=== PATIENT | female | born 1960 | race Caucasian/White ===

== ENCOUNTER → 2016-05-04 | Outpatient (CLI) | payer OTHER ==
--- NOTE | 2016-05-04 12:57 | Diagnostic Imaging Report ---
PROCEDURE: CT sinuses without contrast TECHNIQUE: Multiple contiguous axial images were obtained through the sinuses without the use of intravenous contrast. Coronal and sagittal reformations were then performed. INDICATION: Chronic sinusitis. COMPARISON: None. FINDINGS: Small focal area of mucosal thickening in the lateral left sphenoid sinus. No other mucosal thickening. No osteitis. No air-fluid levels. The ostiomeatal units and frontal recesses are patent. Mild leftward bowing of the nasal septum. Right middle turbinate ye bullosa. Incidental impacted right maxillary third molar. The mastoid air cells are clear. 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 IMPRESSION: 1. Small focal area of mucosal thickening in the lateral left sphenoid sinus. The paranasal sinuses are otherwise unremarkable. 2. 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 Dictated by: Dictated on workstation # [id number]
== END ==
LOC: RAD 11:31
PROVIDERS: ATTEND Otolaryngology Otolaryngology/Facial Plastic Surgery
DX: J32.9 Chronic sinusitis, unspecified (principal)
CPT/HCPCS: 70486

== ENCOUNTER → 2017-07-20 | Outpatient (CLI) | payer OTHER ==
--- NOTE | 2017-07-25 13:35 | Diagnostic Imaging Report ---
EXAMINATION: Digital mammogram bilateral screening with 3D tomosynthesis and CAD. INDICATION: Screening. COMPARISON: 09/04/2012. PERSONAL HISTORY: At this time, there are no current complaints. FINDINGS: The previous exam did note asymmetries in the left breast along the central and medial aspect of the craniocaudad view and superiorly on the MLO view. The diagnostic mammogram and ultrasound exam of 09/29/2012 suggested that these densities were complicated cysts. The largest of the suspected complicated cysts was in the 10 o'clock position C zone and measured 8 x 4 mm. On this exam, the nodular density in the medial aspect of the left breast seen previously is again evident and does not appear to have changed adversely. I do suspect that this is a benign process. The other asymmetric densities are not as conspicuous on this study. The fibroglandular tissue in both breasts is heterogeneously dense. This does limit the sensitivity of this exam. There is no primary or secondary sign of malignancy noted. IMPRESSION: 1. There is no evidence for malignancy. 2. The small nodular density in the medial aspect of the left breast seen previously is again evident and does not appear to have changed significantly. Most likely, this is a benign process. 3. The patient should have her annual bilateral screening mammogram on schedule in July 2018. ACR BI-RADS Category 2: Benign findings. Result letter will be mailed to the patient. Note: At least 10% of breast cancer is not imaged by mammography. Dictated by: Dictated on workstation # [id number]
== END ==
LOC: RAD 10:02
PROVIDERS: ATTEND Nurse Practitioner Primary Care
DX: Z12.31 Encounter for screening mammogram for malignant neoplasm of breast (principal)
CPT/HCPCS: 77067

== ENCOUNTER → 2020-01-03 | Outpatient (CLI) | payer OTHER ==
--- NOTE | 2020-01-03 13:20 | Diagnostic Imaging Report ---
INDICATION: Routine screening. Comparison is made with prior mammogram 07/20/2017. 2-D and 3-D bilateral screening mammography was performed with CAD. Both breasts remain heterogeneously dense, limiting the sensitivity of mammography. Previously seen circumscribed density in the right breast is stable. Circumscribed density in the medial left breast is stable. There appears to be a new circumscribed density in the outer left breast approximately 3 o'clock and 6 cm from the nipple. No malignant appearing microcalcifications are seen. IMPRESSION: BI-RADS 0 New circumscribed density outer left breast proximally 3 o'clock location. Further evaluation of this area with ultrasound is recommended. ACR BI-RADS Category 0: Incomplete. (Needs additional imaging evaluation). Result letter will be mailed to the patient. Note: At least 10% of breast cancer is not imaged by mammography. Dictated by: Dictated on workstation # [id number]
== END ==
LOC: RAD 10:32
PROVIDERS: ATTEND Nurse Practitioner Family
DX: Z12.31 Encounter for screening mammogram for malignant neoplasm of breast (principal); R92.8 Other abnormal and inconclusive findings on diagnostic imaging of breast
CPT/HCPCS: 77063; 77067

== ENCOUNTER → 2020-01-20 | Outpatient (CLI) | payer OTHER ==
--- NOTE | 2020-01-20 14:19 | Diagnostic Imaging Report ---
INDICATION: Left breast density. Correlation is made with recent screening mammogram from 01/03/2020. Sonographic interrogation of the outer left breast was performed. There is a simple appearing cyst at the 3:00 location, 5 cm from the nipple. This measures 5 mm x 4 mm x 6 mm. No internal vascularity is seen. This does correspond to the density noted mammographically. IMPRESSION: BI-RADS 2 Simple cyst 3:00 location left breast, 5 to 6 cm from the nipple. This does correspond to the mammographic density. Patient may return to routine annual screening mammography. ACR BI-RADS Category 2: Benign findings. Dictated by: Dictated on workstation # [id number]
== END ==
LOC: RAD 12:37
PROVIDERS: ATTEND Nurse Practitioner Family
DX: N60.02 Solitary cyst of left breast (principal)
CPT/HCPCS: 76642